=== PATIENT | female | born 1985 | race African-American/Black ===

== ENCOUNTER 2017-02-21 21:02 | Emergency (ER) | payer OTHER, SELFPAY ==
[~2017-02-21 21:02] MED LIST: ISOVUE-370 76%-LOCM 1 ML ONE
[2017-02-21 22:01] LABS: #Basophils 0.1 thou/uL (0.0-0.2); #Eosinphils 0.1 thou/uL (0.0-0.7); #Lymphocytes 3.1 thou/uL (1.20-3.40); #Monocytes 0.8 thou/uL (0.11-0.59); %Basophils 1.2 % (0.0-1.0); %Eosinophils 1.1 % (0.0-10.0); %Lymphocytes 33.8 % (21.0-51.0); %Monocytes 8.9 % (0.0-10.0); Hematocrit 37.9 % (36.0-47.0); Mean Platelet Volume 6.9 fL (7.4-10.4); Red Blood Cell (RBC) Count 3.88 mill/uL (4.20-5.40); White Blood Cell (WBC) Count 9.1 thou/uL (4.8-10.8)
[2017-02-21 22:09] LABS: Bilirubin Negative (Negative); Blood, Urine Negative (Negative); Glucose, Urine (Dipstick) Negative (Negative); Ketone, Urine Negative (Negative); Nitrite Negative (Negative); Protein, Urine (Dipstick) Negative (Neg-Trace); Urobilinogen 0.2 mg/dL (0.2-1.0)
[2017-02-21 22:22] LABS: ALT (SGPT) 10 U/L (8-55); AST (SGOT) 14 U/L (5-34); Alkaline Phosphatase 76 U/L (40-150); Anion Gap 12 mmol/L (10-20); BUN (Urea Nitrogen) 11 mg/dL (7.0-18.7); Bilirubin, Total 0.2 mg/dL (0.2-1.2); Calc. Creatinine Clearance 0 mL/min (70-130); Calcium 9.9 mg/dL (7.8-10.44); Carbon Dioxide 25 mmol/L (22-29); Chloride 105 mmol/L (98-107); Estimated GFR-MDRD Greater than 90; Globulin 3.9 g/dL (2.4-3.5); Protein, Total 7.9 g/dL (6.0-8.3)
[2017-02-21] MEDS ORDERED: Ketorolac Tromethamine 30 MG/ML VIAL ONE (22:52)
--- NOTE | 2017-02-21 23:30 | CT ---
CT OF THE ABDOMEN AND PELVIS 02/21/17 COMPARISON: None. HISTORY: Right lower quadrant pain, right flank pain, nausea. TECHNIQUE: Serial axial CT imaging obtained at 5 mm intervals from lung bases through pubic symphysis with intra venous contrast. Coronal reformatted imaging obtained. FINDINGS: The imaged lung bases are unremarkable. No free intraperitoneal air. There is a nonobstructing small umbilical hernia. The liver, gallbladder, spleen, pancreas, adrenal glands and kidneys appear unremar kable. There is small volume free fluid in the pelvic cul-de-sac. There is no evidence for bowel inflammator y change or bowel obstruction. The appendix appears grossly unremarkable. There is no lymphadenopathy seen in the retroperitoneum, the pelvis, or the mesentery. The vascular s tructures of the abdomen/pelvis appear patent. No acute osseous abnormality is seen. IMPRESSION: No evidence for small bowel obstruction, free intraperitoneal air, or appendicitis. POS: [id number]
== END 2017-02-22 00:15 | disposition home or self-care (01) ==
LOC: ERS 21:02 → EEVIPCON 21:02 → ERS 02-22 00:15
DX: K59.00 Constipation, unspecified (principal); F41.9 Anxiety disorder, unspecified; F31.9 Bipolar disorder, unspecified
CPT/HCPCS: 74177; 80053; 81003; 81025; 85025; 96361; 96374; J1885